=== PATIENT | male | born 1985 | race Two or more races ===

== ENCOUNTER → 2024-09-05 | Outpatient (CLI) | payer BC, SELFPAY ==
--- NOTE | 2024-09-05 14:43 | XR_ITS ---
Examination:Left hip AP, lateral, AP pelvis 3 views Technique: Hip AP lateral, AP pelvis, 3 views Exam date and time:September 05, 2024 1452 hours INDICATIONS: Left hip pain after lifting injury 6 weeks ago. FINDINGS: No left hip fracture or dislocation Right hip bones of the pelvis intact Mild narrowing hip joints IMPRESSION: No hip or pelvic fracture.
--- NOTE | 2024-09-05 14:47 | XR_ITS ---
Examination: Lumbar spine, 5 views Technique: Lumbar spine AP, lateral, coned lateral lower lumbar spine, bilateral obliques 5 views Exam date and time: September 05, 2024 1452 hours INDICATIONS: Low back pain radiating to left hip beginning 6 weeks ago after lifting injury FINDINGS: Adequate alignment lumbar vertebral bodies. No lumbar fracture. Early degenerative disc disease L5-S1 IMPRESSION: No lumbar fracture
== END | disposition home or self-care (01) ==
LOC: CDIM 14:32
PROVIDERS: PCP Internal Medicine; Referring Provider Internal Medicine; Visit Provider Internal Medicine
DX: S79.912A Unspecified injury of left hip, initial encounter (principal); S39.92XA Unspecified injury of lower back, initial encounter; X58.XXXA Exposure to other specified factors, initial encounter
CPT/HCPCS: 72110; 73502